=== PATIENT | female | born 1985 | race Caucasian/White ===

== ENCOUNTER 2017-11-19 04:21 | Emergency (ER) | payer OTHER ==
[2017-11-19 04:35] VITALS: BP 127/44
--- NOTE | 2017-11-19 04:44 | EDM.PDOC ---
ED HPI GENERAL MEDICAL PROBLEM - General Chief Complaint: ENT Problem Stated Complaint: LEFT EAR PAIN Time Seen by Provider: 11/19/17 04:26 - History of Present Illness INITIAL COMMENTS - FREE TEXT/NARRATIVE: HISTORY AND PHYSICAL: History of present illness: The patient is a 32-year-old female who is approximately 29-30 weeks and is having no related complaints--- no abdominal pain no vaginal bleeding no nausea no vomiting and she has had movement--- who presents with left ear pain where she has been having some twinges over the last couple of days but woke this morning with more constant and severe left ear pain. On the way driving over here she noticed a trickle of some blood. She's had no fevers chills sinus infection sore throat or head and neck trauma. She said that she had noticed the twinges in her ear over the last couple of days but didn't think anything of it. Review of systems: As per history of present illness and below otherwise all systems reviewed and negative. Past medical history: As per history of present illness and as reviewed below otherwise noncontributory. Surgical history: As per history of present illness and as reviewed below otherwise noncontributory. Social history: No reported history of drug or alcohol abuse. Family history: As per history of present illness and as reviewed below otherwise noncontributory. Physical exam: HEENT: Atraumatic, normocephalic, pupils reactive, negative for conjunctival pallor or scleral icterus, mucous membranes moist, throat clear, neck supple, nontender, trachea midline. TM on the right is slightly dulled and external canals within normal limits, TM on the right is beefy-red and bulging and in the external canal there is some thin blood seen but no active site of bleeding is identified, the external canal is not particularly swollen or with debris and there is no mastoid tenderness or redness. I do not see any discrete perforation but it is so beefy red and bulging it is challenging to differentiate if there is a small per. Lungs: Clear to auscultation, breath sounds equal bilaterally, chest nontender. Heart: S1S2, regular and rhythm no overt murmurs Abdomen: Soft, nondistended, visible gravid uterus Pelvis: Deferred Genitourinary: Deferred. Rectal: Deferred. Extremities: Atraumatic, negative for cords or calf pain. Neurovascular unremarkable. Neuro: Awake, alert, oriented. Cranial nerves II through XII unremarkable. Cerebellum unremarkable. Motor and sensory unremarkable throughout. Exam nonfocal. Diagnostics: heart tones Therapeutics: [] Impression: Acute left otitis media Definitive disposition and diagnosis as appropriate pending reevaluation and review of above. left ear Pain Score (Numeric/FACES): 8 - Related Data Allergies Allergy/AdvReac Type Severity Reaction Status Date / Time No Known Allergies Allergy Verified 04/07/16 07:58 Past Medical History HEENT History: Reports: Other (See Below) Other HEENT History: pt states she feels like she has the start of a sinus infection/ear infection. states left ear is hard to hear from. 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 ED EXAM, GENERAL - Physical Exam Exam: See Below (See dictation) Course - Vital Signs Last Recorded V/S: Last Vital Signs Temp 36.4 C 11/19/17 04:21 Pulse 88 11/19/17 04:21 Resp 18 11/19/17 04:21 BP 127/44 L 11/19/17 04:21 Pulse Ox 97 11/19/17 04:21 - Orders/Labs/Meds Orders: Active Orders 24 hr Category Date Time Status Communication Order [RC] STAT Care 11/19/17 04:40 Ordered Departure - Departure Time of Disposition: 04:42 Disposition: Home, Self-Care 01 Condition: Good Clinical Impression: Otitis media Qualifiers: Otitis media type: unspecified Chronicity: acute Qualified Code(s): H66.90 - Otitis media, unspecified, unspecified ear - Discharge Information Referrals: Shaquille Meek MD [Primary Care Provider] - Additional Instructions: The following information is given to patients seen in the emergency department who are being discharged to home. This information is to outline your options for follow-up care. We provide all patients seen in our emergency department with a follow-up referral. The need for follow-up, as well as the timing and circumstances, are variable depending upon the specifics of your emergency department visit. If you don't have a primary care physician on staff, we will provide you with a referral. We always advise you to contact your personal physician following an emergency department visit to inform them of the circumstance of the visit and for follow-up with them and/or the need for any referrals to a consulting specialist. The emergency department will also refer you to a specialist when appropriate. This referral assures that you have the opportunity for followup care with a specialist. All of these measure are taken in an effort to provide you with optimal care, which includes your followup. Under all circumstances we always encourage you to contact your private physician who remains a resource for coordinating your care. When calling for followup care, please make the office aware that this follow-up is from your recent emergency room visit. If for any reason you are refused follow-up, please contact the [facility] emergency department at and ask to speak to the emergency department charge nurse. [address] [place], [place] [id number] [facility] [address] [address] [place], [place] [id number] Please contact and follow-up with your provider Dr. Meek in about a week to have your ear rechecked. Use [id number] medications for pain and a few are having persistent pain please contact Chanel Francois your nurse criminal judge to discuss other pain medication options. Please take antibiotics until they are finished and do not place anything into the ear even Q-tips into treatment is finished. Return to ER as needed and as discussed - My Orders Last 24 Hours: My Active Orders 11/19/17 04:40 Communication Order [RC] STAT - Assessment/Plan Last 24 Hours: My Active Orders 11/19/17 04:40 Communication Order [RC] STAT
== END 2017-11-19 05:05 | disposition home or self-care (01) ==
LOC: MW.ED 04:21
DX: O99.89 Other specified diseases and conditions complicating pregnancy, childbirth and the puerperium (principal); H66.92 Otitis media, unspecified, left ear; Z3A.29 29 weeks gestation of pregnancy
CPT/HCPCS: 99282

== ENCOUNTER 2018-01-27 06:11 | Observation (INO) | payer OTHER ==
[2018-01-27] MEDS ORDERED: Nalbuphine 10 MG/1 ML Vial IVPUSH PRN (06:15)
[2018-01-27] MEDS ORDERED: Sodium Chloride 0.9% 2.5 ML Syringe FLUSH PRN (06:15)
[2018-01-27] MEDS ORDERED: Lactated Ringers 1,000 ML IV SCH (06:15)
[2018-01-27] MEDS ORDERED: Sodium Chloride 0.9% 10 ML Syringe FLUSH PRN (06:15)
[2018-01-27] MEDS ORDERED: Butorphanol 1 MG/ML SDV IVPUSH PRN (06:15)
[2018-01-27] MEDS ORDERED: Water For Irrigation,Sterile 1,000 ML Container IRR PRN (06:15)
[2018-01-27] MEDS ORDERED: Tranexamic Acid 1,000 MG in Sodium Chloride 0.9% 100 ML IV PRN (06:15)
[2018-01-27] MEDS ORDERED: Ampicillin 2 GM in Sodium Chloride 0.9% 100 ML IV ONE (06:15)
[2018-01-27] MEDS ORDERED: Carboprost Tromethamine 250 MCG/1 ML Amp IM PRN (06:15)
[2018-01-27] MEDS ORDERED: Methylergonovine 0.2 MG/1 ML Amp IM PRN (06:15)
[2018-01-27] MEDS ORDERED: Misoprostol 200 MCG Tab PO PRN (06:15)
[2018-01-27] MEDS ORDERED: Lidocaine 1% 50 ML MDV INJECT PRN (06:15)
[2018-01-27] MEDS ORDERED: Nalbuphine 10 MG/ML 10 ML MDV IVPUSH PRN (07:15)
[2018-01-27] MEDS ORDERED: Oxytocin/Lactated Ringers 30 UNIT/500 ML BAG IV SCH (07:45)
[2018-01-27] MEDS ORDERED: Oxytocin/0.9 % Sodium Chloride 30 UNIT/500 ML BAG ONE (07:58)
[2018-01-27] MEDS: Ampicillin 1 GM in Sodium Chloride 0.9% 50 ML IV SCH ×2 (10:30→14:30)
--- NOTE | 2018-01-27 10:39 | PCM.LDHP ---
L&D History of Present Illness - General Date of Service: 01/27/18 Admit Problem/Dx: Patient Status Order with Admit Dx/Problem 01/27/18 06:15 Patient Status [ADT] Routine Admission Diagnosis/Problem Admission Diagnosis/Problem 01/27/18 10:33 32yo EDC 01/29/2018 39 5/7 weeks gestation, O+, RI, GBS pos. IOL for Elective term Source of Information: Patient History Limitations: Reports: No Limitations - History of Present Illness Improves with: Reports: None Worsens with: Reports: None Associated Symptoms: Reports: N - Related Data Allergies/Adverse Reactions: Allergies Allergy/AdvReac Type Severity Reaction Status Date / Time No Known Allergies Allergy Verified 11/19/17 04:47 Home Medications: Home Meds #103/Iron Fumarate/Fa [ ] 1 tab PO DAILY 11/19/17 [ History] Past Medical History - Past Health History Medical/Surgical History: Denies Medical/Surgical History HEENT History: Reports: None Other HEENT History: pt states she feels like she has the start of a sinus infection/ear infection. states left ear is hard to hear from. 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: Musculoskeletal History: Reports: None Neurological History: Reports: None Psychiatric History: Reports: None Endocrine/Metabolic History: Reports: None Hematologic History: Reports: None Immunologic History: Reports: None Oncologic (Cancer) History: Reports: None Dermatologic History: Reports: None - Infectious Disease History Infectious Disease History: Reports: Chicken Pox - Past Surgical History HEENT Surgical History: Reports: None GI Surgical History: Reports: None Female Surgical History: Reports: None Social & Family History - Family History Family Medical History: Noncontributory HEENT: Reports: None Respiratory: Reports: None GI: Reports: None OBGYN: Reports: None Musculoskeletal: Reports: Arthritis Neurological: Reports: None Psychiatric: Reports: None Endocrine/Metabolic: Reports: Diabetes, Type I Hematologic: Reports: Anemia Immunologic: Reports: None Dermatologic: Reports: None Oncologic: Reports: None - Tobacco Use Smoking Status *Q: Never Smoker Second Hand Smoke Exposure: No - Caffeine Use Caffeine Use: Reports: Coffee - Recreational Drug Use Recreational Drug Use: No H&P Review of Systems - Review of Systems: Review Of Systems: ROS reveals no pertinent complaints other than HPI. General: Reports: No Symptoms HEENT: Reports: No Symptoms Pulmonary: Reports: No Symptoms Cardiovascular: Reports: No Symptoms Gastrointestinal: Reports: No Symptoms Genitourinary: Reports: No Symptoms Musculoskeletal: Reports: No Symptoms Skin: Reports: No Symptoms Psychiatric: Reports: No Symptoms Neurological: Reports: No Symptoms Hematologic/Lymphatic: Reports: No Symptoms Immunologic: Reports: No Symptoms L&D Exam - Exam Exam: See Below - Vital Signs Weight: 81.647 kg - OB Specific Contraction Intensity: Mild Movement: Active Heart Tones: Present Heart Rate (FHR) Variability: Moderate (6-25 bmp) Presentation: Vertex - Exam General: Alert, Oriented, Cooperative HEENT: Conjunctiva Clear, Hearing Intact Lungs: Clear to Auscultation, Normal Respiratory Effort Cardiovascular: Regular Rate, Regular Rhythm, Normal S1, Normal S2 GI/Abdominal Exam: Soft, Non-Tender Rectal Exam: Deferred Genitourinary: Cervical dilitation Back Exam: Normal Inspection, Full Range of Motion Extremities: Normal Inspection, Normal Range of Motion, Non-Tender, Normal Capillary Refill, Pedal Edema (mild) Skin: Warm, Dry, Intact Neurological: Cranial Nerves Intact, Reflexes Equal Bilateral, Strength Equal Bilateral, Normal Gait, Normal Speech, Normal Tone Psychiatric: Alert, Normal Affect, Normal Mood - Patient Data Lab Results Last 24 hrs: Laboratory Results - last 24 hr 01/27/18 01/27/18 Range/Units 06:28 06:28 WBC 12.01 H (4.0-11.0) K/uL RBC 4.13 L (4.30-5.90) M/uL Hgb 12.1 (12.0-16.0) g/dL Hct 35.3 L (36.0-46.0) % MCV 85.5 (80.0-98.0) fL MCH 29.3 (27.0-32.0) pg MCHC 34.3 (31.0-37.0) g/dL RDW Std Deviation 43.2 (28.0-62.0) fl RDW Coeff of Navarro 14 (11.0-15.0) % Plt Count 248 (150-400) K/uL MPV 10.50 (7.40-12.00) fL Nucleated RBC % 0.0 /100WBC Nucleated RBCs # 0 K/uL Blood Type O POSITIVE Antibody Screen NEGATIVE Result Diagrams: 01/27/18 06:28 - Problem List (1) Supervision of normal IUP (intrauterine ) in multigravida SNOMED Code(s): 355021141, 025209106, 312144970 ICD Code: Z34.80 - ENCOUNTER FOR SUPRVSN OF NORMAL , UNSP TRIMESTER Status: Acute Current Visit: Yes Qualifiers: Trimester: first trimester Qualified Code(s): Z34.81 - Encounter for supervision of other normal , first trimester Problem List Initiated/Reviewed/Updated: Yes Orders Last 24hrs: Active Orders 24 hr Category Date Time Status Patient Status [ADT] Routine ADT 01/27/18 06:15 Active Non Stress Test [RC] PER UNIT ROUTINE Care 01/27/18 06:15 Active May Shower [RC] ASDIRECTED Care 01/27/18 06:15 Active Notify Provider [RC] PRN Care 01/27/18 06:15 Active Up ad Maria Ines [RC] ASDIRECTED Care 01/27/18 06:15 Active Vital Signs [RC] PER UNIT ROUTINE Care 01/27/18 06:15 Active Regular Diet [DIET] Diet 01/27/18 Breakfast Active Ampicillin 1 gm Med 01/27/18 10:30 Active Sodium Chloride 0.9% [Normal Saline] 50 ml IV Q4H Butorphanol [Stadol] Med 01/27/18 06:15 Active 1 mg IVPUSH Q1H PRN Carboprost Tromethamine [Hemabate DS] Med 01/27/18 06:15 Active 250 mcg IM ASDIRECTED PRN Lactated Ringers [Ringers, Lactated] 1,000 ml Med 01/27/18 06:15 Active IV ASDIRECTED Lidocaine 1% [Xylocaine 1%] Med 01/27/18 06:15 Active 50 ml INJECT .ONCE PRN Methylergonovine [Methergine] Med 01/27/18 06:15 Active 0.2 mg IM ASDIRECTED PRN Nalbuphine [Nubain] Med 01/27/18 07:15 Active 10 mg IVPUSH Q1H PRN Oxytocin/Lactated Ringers [Pitocin in LR 30 Units/500 Med 01/27/18 07:45 Active ML] 30 unit in 500 ml IV TITRATE Sodium Chloride 0.9% [Saline Flush] Med 01/27/18 06:15 Active 10 ml FLUSH ASDIRECTED PRN Sodium Chloride 0.9% [Saline Flush] Med 01/27/18 06:15 Active 2.5 ml FLUSH ASDIRECTED PRN Tranexamic Acid [Cyklokapron] 1,000 mg Med 01/27/18 06:15 Active Sodium Chloride 0.9% [Normal Saline] 100 ml IV ONETIME Water For Irrigation,Sterile [Sterile Water for Med 01/27/18 06:15 Active Irrigation] 1,000 ml IRR ASDIRECTED PRN miSOPROStol [Cytotec] Med 01/27/18 06:15 Active 200 mcg PO .ONCE PRN Scalp Electrode [WOMSER] Per Unit Routine Oth 01/27/18 06:15 Ordered Peripheral IV Insertion Adult [OM.PC] Routine Oth 01/27/18 06:15 Ordered Resuscitation Status Routine Resus Stat 01/27/18 06:15 Ordered Medication Orders Butorphanol Tartrate (Stadol) 1 mg IVPUSH Q1H PRN PRN Reason: Pain Carboprost Tromethamine (Hemabate Ds) 250 mcg IM ASDIRECTED PRN PRN Reason: Post Hemorrhage Lactated Ringer's (Ringers, Lactated) 1,000 mls @ 150 mls/hr IV ASDIRECTED HANH Last Admin: 01/27/18 06:44 Dose: 150 mls/hr Tranexamic Acid 1,000 mg/ (Sodium Chloride) 110 mls @ 660 mls/hr IV ONETIME PRN PRN Reason: Bleeding Oxytocin/Lactated Ringer's (Pitocin In Lr 30 Units/500 Ml) 30 unit in 500 mls @ 2 mls/hr IV TITRATE HANH; Protocol Ampicillin Sodium 1 gm/ Sodium (Chloride) 50 mls @ 100 mls/hr IV Q4H HANH Lidocaine HCl (Xylocaine 1%) 50 ml INJECT .ONCE PRN PRN Reason: Laceration repair Methylergonovine Maleate (Methergine) 0.2 mg IM ASDIRECTED PRN PRN Reason: Post Hemorrhage Misoprostol (Cytotec) 200 mcg PO .ONCE PRN PRN Reason: Post Hemorrhage Nalbuphine HCl (Nubain) 10 mg IVPUSH Q1H PRN PRN Reason: Pain (severe 7-10) Sodium Chloride (Saline Flush) 10 ml FLUSH ASDIRECTED PRN PRN Reason: Keep Vein Open Sodium Chloride (Saline Flush) 2.5 ml FLUSH ASDIRECTED PRN PRN Reason: Keep Vein Open Sterile Water (Sterile Water For Irrigation) 1,000 ml IRR ASDIRECTED PRN PRN Reason: delivery Assessment/Plan Comment:: IOL A:32yo EDC 01/29/2018 39 5/7 weeks gestation, O+, RI, GBS pos. IOL for Elective term P: Admit, pitocin, GBS pos, Amp 2gm started, AROM after 4h, epidural prn. Anticipate . Dr Haddad updated
--- NOTE | 2018-01-27 14:26 | PCM.PREANE ---
Preanesthetic Assessment - Anesthesia/Transfusion/Family Hx Anesthesia History: Prior Anesthesia Without Reaction Family History of Anesthesia Reaction: No Transfusion History: No Prior Transfusion(s) - Review of Systems General: No Symptoms Pulmonary: No Symptoms Cardiovascular: No Symptoms Gastrointestinal: No Symptoms Neurological: No Symptoms Other: Reports: None - Physical Assessment Height: 5 ft 5 in Weight: 81.647 kg ASA Class: 2 Mental Status: Alert & Oriented x3 Airway Class: Mallampati = 2 Dentition: Reports: Normal Dentition Thyro-Mental Finger Breadths: 3 Mouth Opening Finger Breadths: 3 ROM/Head Extension: Full Lungs: Clear to Auscultation, Normal Respiratory Effort Cardiovascular: Regular Rate, Regular Rhythm - Lab Values: Laboratory Last Values WBC 12.01 K/uL (4.0-11.0) H 01/27/18 06:28 RBC 4.13 M/uL (4.30-5.90) L 01/27/18 06:28 Hgb 12.1 g/dL (12.0-16.0) 01/27/18 06:28 Hct 35.3 % (36.0-46.0) L 01/27/18 06:28 MCV 85.5 fL (80.0-98.0) 01/27/18 06:28 MCH 29.3 pg (27.0-32.0) 01/27/18 06:28 MCHC 34.3 g/dL (31.0-37.0) 01/27/18 06:28 RDW Std Deviation 43.2 fl (28.0-62.0) 01/27/18 06:28 RDW Coeff of Navarro 14 % (11.0-15.0) 01/27/18 06:28 Plt Count 248 K/uL (150-400) 01/27/18 06:28 MPV 10.50 fL (7.40-12.00) 01/27/18 06:28 Nucleated RBC % 0.0 /100WBC 01/27/18 06:28 Nucleated RBCs # 0 K/uL 01/27/18 06:28 Blood Type O POSITIVE 01/27/18 06:28 Antibody Screen NEGATIVE 01/27/18 06:28 - Allergies Allergies/Adverse Reactions: Allergies Allergy/AdvReac Type Severity Reaction Status Date / Time No Known Allergies Allergy Verified 11/19/17 04:47 - Acknowledgements Anesthesia Type Planned: Epidural Pt an Appropriate Candidate for the Planned Anesthesia: Yes Alternatives and Risks of Anesthesia Discussed w Pt/Guardian: Yes Pt/Guardian Understands and Agrees with Anesthesia Plan: Yes PreAnesthesia Questionnaire - Past Health History Medical/Surgical History: Denies Medical/Surgical History HEENT History: Reports: None Other HEENT History: pt states she feels like she has the start of a sinus infection/ear infection. states left ear is hard to hear from. 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 LMP (Approximate): Musculoskeletal History: Reports: None Neurological History: Reports: None Psychiatric History: Reports: None Endocrine/Metabolic History: Reports: None Hematologic History: Reports: None Immunologic History: Reports: None Oncologic (Cancer) History: Reports: None Dermatologic History: Reports: None - Infectious Disease History Infectious Disease History: Reports: Chicken Pox - Past Surgical History HEENT Surgical History: Reports: None GI Surgical History: Reports: None Female Surgical History: Reports: None - SUBSTANCE USE Smoking Status *Q: Never Smoker Second Hand Smoke Exposure: No Recreational Drug Use History: No - HOME MEDS Home Medications: Home Meds #103/Iron Fumarate/Fa [ ] 1 tab PO DAILY 11/19/17 [ History] - CURRENT (IN HOUSE) MEDS Current Meds: Current Medications Butorphanol Tartrate (Stadol) 1 mg IVPUSH Q1H PRN PRN Reason: Pain Carboprost Tromethamine (Hemabate Ds) 250 mcg IM ASDIRECTED PRN PRN Reason: Post Hemorrhage Lactated Ringer's (Ringers, Lactated) 1,000 mls @ 150 mls/hr IV ASDIRECTED HANH Last Admin: 01/27/18 06:44 Dose: 150 mls/hr Tranexamic Acid 1,000 mg/ (Sodium Chloride) 110 mls @ 660 mls/hr IV ONETIME PRN PRN Reason: Bleeding Oxytocin/Lactated Ringer's (Pitocin In Lr 30 Units/500 Ml) 30 unit in 500 mls @ 2 mls/hr IV TITRATE HANH; Protocol Ampicillin Sodium 1 gm/ Sodium (Chloride) 50 mls @ 100 mls/hr IV Q4H HANH Last Admin: 01/27/18 10:30 Dose: 100 mls/hr Lidocaine HCl (Xylocaine 1%) 50 ml INJECT .ONCE PRN PRN Reason: Laceration repair Methylergonovine Maleate (Methergine) 0.2 mg IM ASDIRECTED PRN PRN Reason: Post Hemorrhage Misoprostol (Cytotec) 200 mcg PO .ONCE PRN PRN Reason: Post Hemorrhage Nalbuphine HCl (Nubain) 10 mg IVPUSH Q1H PRN PRN Reason: Pain (severe 7-10) Sodium Chloride (Saline Flush) 10 ml FLUSH ASDIRECTED PRN PRN Reason: Keep Vein Open Sodium Chloride (Saline Flush) 2.5 ml FLUSH ASDIRECTED PRN PRN Reason: Keep Vein Open Sterile Water (Sterile Water For Irrigation) 1,000 ml IRR ASDIRECTED PRN PRN Reason: delivery Discontinued Medications Ampicillin Sodium 2 gm/ Sodium (Chloride) 100 mls @ 200 mls/hr IV ONETIME ONE Stop: 01/27/18 06:44 Last Admin: 01/27/18 06:41 Dose: 200 mls/hr Oxytocin/Sodium Chloride (Oxytocin 30 Unit/500 Ml-Ns) Confirm Administered Dose 30 unit in 500 mls @ as directed .ROUTE .STK-MED ONE Stop: 01/27/18 07:59 Last Admin: 01/27/18 08:02 Dose: 2 mls/hr Nalbuphine HCl (Nubain) 10 mg IVPUSH Q1H PRN PRN Reason: Pain (severe 7-10)
[2018-01-27] MEDS ORDERED: Acetaminophen 500 MG Tab PO PRN (15:42)
[2018-01-27] MEDS ORDERED: oxyCODONE 5 MG Tab PO PRN (15:42)
[2018-01-27] MEDS ORDERED: Benzocaine/Menthol 20%-0.5% Spray 78 GM Cannister TOP PRN (15:42)
[2018-01-27] MEDS ORDERED: Ibuprofen 400 MG Tab PO PRN (15:42)
[2018-01-27] MEDS ORDERED: Docusate Sodium 100 MG Cap PO PRN (15:42)
[2018-01-27] MEDS ORDERED: Witch Hazel Medicated Pads 40/Jar TOP PRN (15:42)
[2018-01-27] MEDS ORDERED: Bisacodyl 10 MG Supp RECTAL PRN (15:42)
[2018-01-27] MEDS ORDERED: Lanolin 100% Cream 7 GM Tube TOP PRN (15:42)
[2018-01-27] MEDS ORDERED: Ibuprofen 800 MG Tab PO PRN (15:42)
--- NOTE | 2018-01-27 16:15 | PCM.DEL ---
L & D Note - General Info Date of Service: 01/27/18 Mother's Due Date: 01/29/18 - Delivery Note Labor: Augmented by ARM Cervical Ripening Method: Oxytocin Delivery Outcome: Livebirth Delivery Method: Spontaneous Vaginal Delivery-Single Delivery Mode: Spontaneous Presentation: Vertex Nuchal Cord: None Anesthesia Type: Epidural Episiotomy Type: None Laceration: None Placenta: Intact, Spontaneous Cord: 3 Vessels Resuscitation Needed: No : Suctioned, Stimulated, Warmed, Lynch Used, Warmer Used Induction Criteria - Shipman Score Shipman Score Dilation: 3-4 cm Shipman Score Effacement: 60-70% Shipman Score 's Station: -2 Shipman Score Consistency: Soft Shipman Score Cervix Position: Anterior Shipman Score Total: 9 - General Info Date of Service: 01/27/18 Functional Status: Reports: Pain Controlled - Review of Systems General: Reports: No Symptoms HEENT: Reports: No Symptoms Pulmonary: Reports: No Symptoms Cardiovascular: Reports: No Symptoms Gastrointestinal: Reports: No Symptoms Genitourinary: Reports: No Symptoms Musculoskeletal: Reports: No Symptoms Skin: Reports: No Symptoms Neurological: Reports: No Symptoms Psychiatric: Reports: No Symptoms - Patient Data Weight - Most Recent: 81.647 kg Lab Results Last 24 Hours: Laboratory Results - last 24 hr 01/27/18 01/27/18 Range/Units 06:28 06:28 WBC 12.01 H (4.0-11.0) K/uL RBC 4.13 L (4.30-5.90) M/uL Hgb 12.1 (12.0-16.0) g/dL Hct 35.3 L (36.0-46.0) % MCV 85.5 (80.0-98.0) fL MCH 29.3 (27.0-32.0) pg MCHC 34.3 (31.0-37.0) g/dL RDW Std Deviation 43.2 (28.0-62.0) fl RDW Coeff of [place]arro 14 (11.0-15.0) % Plt Count 248 (150-400) K/uL MPV 10.50 (7.40-12.00) fL Nucleated RBC % 0.0 /100WBC Nucleated RBCs # 0 K/uL Blood Type O POSITIVE Antibody Screen NEGATIVE Med Orders - Current: Current Medications Acetaminophen (Tylenol Extra Strength) 500 mg PO Q4H PRN PRN Reason: Pain Acetaminophen (Tylenol Extra Strength) 1,000 mg PO Q4H PRN PRN Reason: Pain Benzocaine/Menthol (Dermoplast Pain Relief 20%-0.5% [place]) 78 gm TOP ASDIRECTED PRN PRN Reason: Perineal Comfort Measure Bisacodyl (Dulcolax) 10 mg RECTAL .ONCE PRN PRN Reason: Constipation Docusate Sodium (Colace) 100 mg PO BID PRN PRN Reason: Constipation Emollient Ointment (Lansinoh Hpa) 0 gm TOP ASDIRECTED PRN PRN Reason: Sore Nipples Ibuprofen (Motrin) 400 mg PO Q4H PRN PRN Reason: Pain Ibuprofen (Motrin) 800 mg PO Q6H PRN PRN Reason: Pain Oxycodone HCl (Oxycodone) 5 mg PO Q2H PRN PRN Reason: Pain Witch Massiel (Tucks) 1 pad TOP ASDIRECTED PRN PRN Reason: comfort care Discontinued Medications Butorphanol Tartrate (Stadol) 1 mg IVPUSH Q1H PRN PRN Reason: Pain Carboprost Tromethamine (Hemabate Ds) 250 mcg IM ASDIRECTED PRN PRN Reason: Post Hemorrhage Ampicillin Sodium 2 gm/ Sodium (Chloride) 100 mls @ 200 mls/hr IV ONETIME ONE Stop: 01/27/18 06:44 Last Admin: 01/27/18 06:41 Dose: 200 mls/hr Lactated Ringer's (Ringers, Lactated) 1,000 mls @ 150 mls/hr IV ASDIRECTED [facility] Last Admin: 01/27/18 06:44 Dose: 150 mls/hr Tranexamic Acid 1,000 mg/ (Sodium Chloride) 110 mls @ 660 mls/hr IV ONETIME PRN PRN Reason: Bleeding Oxytocin/Lactated Ringer's (Pitocin In Lr 30 Units/500 Ml) 30 unit in 500 mls @ 2 mls/hr IV TITRATE HANH; Protocol Oxytocin/Sodium Chloride (Oxytocin 30 Unit/500 Ml-Ns) Confirm Administered Dose 30 unit in 500 mls @ as directed .ROUTE .STK-MED ONE Stop: 01/27/18 07:59 Last Admin: 01/27/18 08:02 Dose: 2 mls/hr Ampicillin Sodium 1 gm/ Sodium (Chloride) 50 mls @ 100 mls/hr IV Q4H HANH Last Admin: 01/27/18 14:30 Dose: 100 mls/hr Fentanyl/Bupivacaine HCl (Ubisnvxa-Zozia-Ei 2 Mcg/Ml-0.125%) Confirm Administered Dose 100 mls @ as directed KAUSHIK ESCOBARK-MED ONE Stop: 01/27/18 14:28 Lidocaine HCl (Xylocaine 1%) 50 ml INJECT .ONCE PRN PRN Reason: Laceration repair Methylergonovine Maleate (Methergine) 0.2 mg IM ASDIRECTED PRN PRN Reason: Post Hemorrhage Misoprostol (Cytotec) 200 mcg PO .ONCE PRN PRN Reason: Post Hemorrhage Nalbuphine HCl (Nubain) 10 mg IVPUSH Q1H PRN PRN Reason: Pain (severe 7-10) Nalbuphine HCl (Nubain) 10 mg IVPUSH Q1H PRN PRN Reason: Pain (severe 7-10) Sodium Chloride (Saline Flush) 10 ml FLUSH ASDIRECTED PRN PRN Reason: Keep Vein Open Sodium Chloride (Saline Flush) 2.5 ml FLUSH ASDIRECTED PRN PRN Reason: Keep Vein Open Sterile Water (Sterile Water For Irrigation) 1,000 ml IRR ASDIRECTED PRN PRN Reason: delivery - Exam General: Alert, Oriented HEENT: Pupils Equal, Pupils Reactive, EOMI, Mucous Membr. Moist/[place] Neck: Supple Lungs: Clear to Auscultation, Normal Respiratory Effort Cardiovascular: Regular Rate, Regular Rhythm GI/Abdominal Exam: Normal Bowel Sounds, Soft, Non-Tender, No Organomegaly, No Distention, No Abnormal Bruit, No Mass, Pelvis Stable (Female) Exam: Normal External Exam, Normal Speculum Exam, Normal Bimanual Exam Back Exam: Normal Inspection, Full Range of Motion Extremities: Normal Inspection, Normal Range of Motion, Non-Tender, No Pedal Edema, Normal Capillary Refill Skin: Warm, Dry, Intact Wound/Incisions: Healing Well Neurological: No New Focal Deficit Psy/Mental Status: Alert, Normal Affect, Normal Mood - Problem List Review Problem List Initiated/Reviewed/Updated: Yes - Assessment Assessment:: Assessment: Viable infant born to a now female at 39 5/7 weeks gestation for . GBS+ with Intrapartum Ampicillin 2gm started. Type O+. EDC 01/29/18 8,9 Weight: 7lb 3oz Infant was dried, stimulated, and brought to the warmer. - Plan Plan:: Plan: routine care, see orders
[2018-01-27] MEDS: Acetaminophen 500 MG Tab PO PRN (22:41)
[2018-01-28] MEDS: Acetaminophen 500 MG Tab PO PRN (06:23)
[2018-01-28 15:44] VITALS: BP 111/73
--- NOTE | 2018-01-28 16:45 | PCM48HPAN ---
Post Anesthesia Note - EVALUATION WITHIN 48HRS OF ANESTHETIC Vital Signs in Normal Range: Yes Patient Participated in Evaluation: Yes Respiratory Function Stable: Yes Airway Patent: Yes Cardiovascular Function Stable: Yes Hydration Status Stable: Yes Pain Control Satisfactory: Yes Nausea and Vomiting Control Satisfactory: Yes Mental Status Recovered: Yes Resp Rate: 16
--- NOTE | 2018-01-28 17:03 | PCM.DCSUM1 ---
Discharge Summary - Hospital Course Free Text/Narrative:: Discharge home with infant. Follow up in 6 weeks or sooner if needed. Diagnosis: Stroke: No - Discharge Data Discharge Date: 01/28/18 Discharge Disposition: Home, Self-Care 01 Condition: Good - Discharge Diagnosis/Problem(s) (1) Supervision of normal IUP (intrauterine ) in multigravida SNOMED Code(s): 942679755, [id number], [id number] ICD Code: Z34.80 - ENCOUNTER FOR SUPRVSN OF NORMAL , UNSP TRIMESTER Status: Acute Current Visit: Yes Qualifiers: Trimester: first trimester Qualified Code(s): Z34.81 - Encounter for supervision of other normal , first trimester - Patient Instructions Diet: Usual Diet as Tolerated Activity: As Tolerated, No Strenuous Activities, Rest and Relax Today Driving: May Drive Today Showering/Bathing: May Shower Notify Provider of: Fever, Increased Pain, Swelling and Redness, Nausea and/or Vomiting Other/Special Instructions: Discharge home with infant. Follow up in 6 weeks or sooner if needed. - Discharge Plan *PRESCRIPTION DRUG MONITORING PROGRAM REVIEWED*: Not Applicable *COPY OF PRESCRIPTION DRUG MONITORING REPORT IN PATIENT DOMINGA: Not Applicable Home Medications: Home Meds #103/Iron Fumarate/Fa [ ] 1 tab PO DAILY 11/19/17 [ History] Patient Handouts: Vaginal Delivery, Care After Referrals: [facility] [Outside] Chanel Francois CNM [Mid-] - 03/10/18 1:30 pm - General Info Date of Service: 01/28/18 Admission Dx/Problem (Free Text: Patient Status Order with Admit Dx/Problem 01/27/18 06:15 Patient Status [ADT] Routine Admission Diagnosis/Problem Admission Diagnosis/Problem 01/27/18 10:33 32yo EDC 01/29/2018 39 5/7 weeks gestation, O+, RI, GBS pos. IOL for Elective term Functional Status: Reports: Pain Controlled, Tolerating Diet, Ambulating, Urinating - Review of Systems General: Reports: No Symptoms HEENT: Reports: No Symptoms Pulmonary: Reports: No Symptoms Cardiovascular: Reports: No Symptoms Gastrointestinal: Reports: No Symptoms Genitourinary: Reports: No Symptoms Musculoskeletal: Reports: No Symptoms Skin: Reports: No Symptoms Neurological: Reports: No Symptoms Psychiatric: Reports: No Symptoms - Patient Data Vitals - Most Recent: Last Vital Signs Temp 36.7 C 01/28/18 15:44 Pulse 98 01/28/18 15:44 Resp 16 01/28/18 16:45 BP 111/73 01/28/18 15:44 Pulse Ox 98 01/28/18 15:44 Weight - Most Recent: 81.647 kg Med Orders - Current: Current Medications Acetaminophen (Tylenol Extra Strength) 500 mg PO Q4H PRN PRN Reason: Pain Acetaminophen (Tylenol Extra Strength) 1,000 mg PO Q4H PRN PRN Reason: Pain Last Admin: 01/28/18 06:23 Dose: 1,000 mg Benzocaine/Menthol (Dermoplast Pain Relief 20%-0.5% [place]) 78 gm TOP ASDIRECTED PRN PRN Reason: Perineal Comfort Measure Bisacodyl (Dulcolax) 10 mg RECTAL .ONCE PRN PRN Reason: Constipation Docusate Sodium (Colace) 100 mg PO BID PRN PRN Reason: Constipation Emollient Ointment (Lansinoh Hpa) 0 gm TOP ASDIRECTED PRN PRN Reason: Sore Nipples Ibuprofen (Motrin) 400 mg PO Q4H PRN PRN Reason: Pain Ibuprofen (Motrin) 800 mg PO Q6H PRN PRN Reason: Pain Last Admin: 01/28/18 03:24 Dose: 800 mg Oxycodone HCl (Oxycodone) 5 mg PO Q2H PRN PRN Reason: Pain Witch Massiel (Tucks) 1 pad TOP ASDIRECTED PRN PRN Reason: comfort care Discontinued Medications Butorphanol Tartrate (Stadol) 1 mg IVPUSH Q1H PRN PRN Reason: Pain Carboprost Tromethamine (Hemabate Ds) 250 mcg IM ASDIRECTED PRN PRN Reason: Post Hemorrhage Ampicillin Sodium 2 gm/ Sodium (Chloride) 100 mls @ 200 mls/hr IV ONETIME ONE Stop: 01/27/18 06:44 Last Admin: 01/27/18 06:41 Dose: 200 mls/hr Lactated Ringer's (Ringers, Lactated) 1,000 mls @ 150 mls/hr IV ASDIRECTED HANH Last Admin: 01/27/18 06:44 Dose: 150 mls/hr Tranexamic Acid 1,000 mg/ (Sodium Chloride) 110 mls @ 660 mls/hr IV ONETIME PRN PRN Reason: Bleeding Oxytocin/Lactated Ringer's (Pitocin In Lr 30 Units/500 Ml) 30 unit in 500 mls @ 2 mls/hr IV TITRATE HANH; Protocol Oxytocin/Sodium Chloride (Oxytocin 30 Unit/500 Ml-Ns) Confirm Administered Dose 30 unit in 500 mls @ as directed .ROUTE .STK-MED ONE Stop: 01/27/18 07:59 Last Admin: 01/27/18 08:02 Dose: 2 mls/hr Ampicillin Sodium 1 gm/ Sodium (Chloride) 50 mls @ 100 mls/hr IV Q4H HANH Last Admin: 01/27/18 14:30 Dose: 100 mls/hr Fentanyl/Bupivacaine HCl (Xfsriqrl-Vdcem-Km 2 Mcg/Ml-0.125%) Confirm Administered Dose 100 mls @ as directed EP .STK-MED ONE Stop: 01/27/18 14:28 Lidocaine HCl (Xylocaine 1%) 50 ml INJECT .ONCE PRN PRN Reason: Laceration repair Methylergonovine Maleate (Methergine) 0.2 mg IM ASDIRECTED PRN PRN Reason: Post Hemorrhage Misoprostol (Cytotec) 200 mcg PO .ONCE PRN PRN Reason: Post Hemorrhage Nalbuphine HCl (Nubain) 10 mg IVPUSH Q1H PRN PRN Reason: Pain (severe 7-10) Nalbuphine HCl (Nubain) 10 mg IVPUSH Q1H PRN PRN Reason: Pain (severe 7-10) Sodium Chloride (Saline Flush) 10 ml FLUSH ASDIRECTED PRN PRN Reason: Keep Vein Open Sodium Chloride (Saline Flush) 2.5 ml FLUSH ASDIRECTED PRN PRN Reason: Keep Vein Open Sterile Water (Sterile Water For Irrigation) 1,000 ml IRR ASDIRECTED PRN PRN Reason: delivery - Exam General: Reports: Alert, Oriented, Cooperative, No Acute Distress Lungs: Reports: Clear to Auscultation, Normal Respiratory Effort Cardiovascular: Reports: Regular Rate, Regular Rhythm GI/Abdominal Exam: Soft, Non-Tender (Female) Exam: Vaginal Bleeding Rectal (Female) Exam: Deferred Back Exam: Reports: Normal Inspection, Full Range of Motion Extremities: Normal Inspection, Normal Range of Motion, Non-Tender, No Pedal Edema, Normal Capillary Refill Skin: Reports: Warm, Dry, Intact Wound/Incisions: Reports: Healing Well Neurological: Reports: No New Focal Deficit, Normal Gait, Normal Speech, Normal Tone, Strength Equal Bilateral Psy/Mental Status: Reports: Alert, Normal Affect, Normal Mood
== END 2018-01-28 17:55 | disposition home or self-care (01) ==
LOC: MW.OBCHECK 06:11 → MW.OB 06:14 → MW.OBCHECK 06:15 → MW.MS 15:58 → MW.OB 16:18
PROVIDERS: ADMIT Obstetrics & Gynecology; ATTEND Obstetrics & Gynecology
DX: O24.02 Pre-existing type 1 diabetes mellitus, in childbirth (principal); E10.9 Type 1 diabetes mellitus without complications; O75.89 Other specified complications of labor and delivery; R30.0 Dysuria; O99.02 Anemia complicating childbirth; D64.9 Anemia, unspecified; Z3A.39 39 weeks gestation of pregnancy; Z37.0 Single live birth
CPT/HCPCS: 36415; 59025; 59409; 85027; 86850; 86900; 86901; A9270; J0290; J2590; J7030; J7050; J7120